=== PATIENT | female | born 1990 | race African-American/Black ===

== ENCOUNTER 2016-05-13 12:52 | Emergency (ER) | payer OTHER ==
[2016-05-13 13:11] VITALS: BMI 26.9
[2016-05-13 13:53] VITALS: TEMP 98.4
[2016-05-13 14:39] VITALS: BP 100/53; PULSE 81
== END 2016-05-13 16:48 | disposition home or self-care (01) ==
LOC: JER 12:52
DX: O99.89 Other specified diseases and conditions complicating pregnancy, childbirth and the puerperium (principal); R10.30 Lower abdominal pain, unspecified; M54.5 Low back pain; V43.52XA Car driver injured in collision with other type car in traffic accident, initial encounter; Y92.414 Local residential or business street as the place of occurrence of the external cause; Y93.89 Activity, other specified; Y99.8 Other external cause status; Z3A.39 39 weeks gestation of pregnancy
CPT/HCPCS: 76819-TC; 99281-25